=== PATIENT | female | born 1970 | race Caucasian/White ===

== ENCOUNTER 2020-08-01 17:07 | Emergency (ER) | payer BC, OTHER ==
[~2020-08-01] VITALS: Ht 175.3 cm; Wt 144.6 kg
[2020-08-01] MEDS ORDERED: ketorolac trometh inj. 60 MG/2 ML VIAL IM ONE (19:05)
[2020-08-01] MEDS ORDERED: TRAM50TA2 PO (19:06)
[2020-08-01 19:31] VITALS: BP 158/85
== END 2020-08-01 19:32 | disposition home or self-care (01) ==
LOC: ER 17:08
DX: S09.90XA Unspecified injury of head, initial encounter (principal); M62.838 Other muscle spasm; M54.2 Cervicalgia; I10 Essential (primary) hypertension; J45.909 Unspecified asthma, uncomplicated; Z98.890 Other specified postprocedural states; Z98.891 History of uterine scar from previous surgery; Z88.1 Allergy status to other antibiotic agents; Z88.2 Allergy status to sulfonamides; Z88.8 Allergy status to other drugs, medicaments and biological substances; Z91.040 Latex allergy status; Z79.899 Other long term (current) drug therapy; Y93.89 Activity, other specified; Y92.89 Other specified places as the place of occurrence of the external cause; Y99.8 Other external cause status
CPT/HCPCS: 96372; 99283; J1885